=== PATIENT | female | born 1995 | race Native Hawaiian/Other Pacific Islander ===

== ENCOUNTER 2017-10-04 08:18 | Outpatient (CLI) | payer OTHER | END 2017-10-04 18:57 | disposition home or self-care (01) | LOC: LABW 08:18 | DX: N91.1 Secondary amenorrhea (principal) | CPT/HCPCS: 36415; 84144 ==

== ENCOUNTER 2017-11-11 14:53 | Outpatient (CLI) | payer OTHER | END 2017-11-11 21:15 | disposition home or self-care (01) | LOC: LABW 14:53 | DX: N91.1 Secondary amenorrhea (principal) | CPT/HCPCS: 36415; 84144; 84702 ==

== ENCOUNTER 2017-11-13 07:42 | Outpatient (CLI) | payer OTHER | END 2017-11-14 04:34 | disposition home or self-care (01) | LOC: LABW 07:42 | DX: N91.1 Secondary amenorrhea (principal) | CPT/HCPCS: 36415; 84702 ==